=== PATIENT | female | born 1985 | race Caucasian/White ===

== ENCOUNTER → 2018-07-09 | Outpatient (CLI) | payer OTHER ==
--- NOTE | 2018-07-10 07:40 | US ---
EXAMINATION TYPE: US transvaginal DATE OF EXAM: 07/09/2018 COMPARISON: NONE CLINICAL HISTORY: N92.0 Menorrhagia, irregular menses x years, tubal ligation, TECHNIQUE: Transvaginal (TV) Transvaginal sonographic images were medically necessary to better asse ss the following anatomy as bladder was not fully prepped for TA US. Date of LMP: 06/02/2018 EXAM MEASUREMENTS: Uterus: 8.7 x 5.2 x 4.8 cm Endometrial Stripe: 0.6 cm Right Ovary: 3.7 x 3.4 x 2.9 cm Left Ovary: 2.9 x 2.5 x 2.0 cm 1. Uterus: Retroverted 2. Endometrium: thin for day 37 LMP 3. Right Ovary: multiple follicles with largest cyst = 1.9 x1.8 x 1.7cm with small internal echogen ic wall focus 4. Left Ovary: multiple follicles with largest simple cyst = 1.1 x 1.2 x 1.0cm. Spectral, color and waveform Doppler imaging shows good arterial and venous flow within the ovaries . 5. Bilateral Adnexa: wnl 6. Posterior cul-de-sac: wnl Heterogeneous retroverted uterus is seen. Endometrium not well visualized. Stent for secretory phase of menstrual cycle. No free fluid in pelvic cul-de-sac. Both ovaries are seen with scattered peripheral follicles. No suspicious adnexal masses. IMPRESSION: Endometrium appears thinned for patient's stated last known menstrual period
== END | disposition home or self-care (01) ==
LOC: RADUSWWP 16:15
PROVIDERS: ATTEND Family Medicine
DX: N92.0 Excessive and frequent menstruation with regular cycle (principal)
CPT/HCPCS: 76830